=== PATIENT | female | born 1995 | race Caucasian/White ===

== ENCOUNTER 2020-03-07 08:00 | Outpatient (CLI) | payer OTHER | END 2020-03-07 16:57 | disposition home or self-care (01) | LOC: PPH VACUNA 08:00 | DX: Z23 Encounter for immunization (principal) ==

== ENCOUNTER 2022-09-09 11:40 | Emergency (ER) | payer OTHER ==
[~2022-09-09] VITALS: Ht 160 cm; Wt 56.7 kg
[2022-09-09] MEDS ORDERED: PROZAC40 MG PO (12:03)
== END 2022-09-09 16:02 | disposition home or self-care (01) ==
LOC: ER 11:40
DX: K29.70 Gastritis, unspecified, without bleeding (principal); Z91.013 Allergy to seafood